=== PATIENT | female | born 2000 | race Caucasian/White ===

== ENCOUNTER 2022-02-25 14:28 | Emergency (ER) | payer BC, OTHER ==
[2022-02-25 15:09] VITALS: BP 139/97; PULSE 76; RESP 18; TEMP 98.8
[2022-02-25] MEDS ORDERED: CLINDAMYCIN 150 MG CAP PO STA (16:59)
--- NOTE | 2022-02-25 17:04 | ED ---
Skin/Abscess/FB HPI - General Chief complaint: Skin/Abscess/Foreign Body Stated complaint: Female UG Time Seen by Provider: 02/25/22 16:39 Source: patient, RN notes reviewed Mode of arrival: ambulatory Limitations: no limitations - History of Present Illness Initial comments: This is a pleasant 21-year-old female who is 6 months . Patient is currently breast-feeding her child and noticed that she had an enlarged milk ducts, more so in the left lateral breast. Patient states the area is minimally tender when his pastime. She has had no fever or chills. Patient states she started getting anxious that this could be an early infectious process. No erythema. No skin lesions or rashes. Mild anxiety, No headache, no fever or chills, no changes in vision or hearing, no sore throat or difficulty with speech, no neck pain, no chest pain or shortness of breath, no abdominal pain, no nausea or vomiting, no changes in urination or bowel movements, no numbness or tingling, no extremity pain, no skin rashes or lesions. - Related Data Home Medications Medication Instructions Recorded Confirmed Citalopram Hydrobromide [CeleXA] 10 mg PO DAILY 06/25/15 06/25/15 Clindamycin HCl 300 mg PO TID 06/25/15 06/25/15 HYDROcodone/APAP 5-325MG [[place] 5] 1 - 2 each PO Q6HR PRN 06/25/15 06/25/15 Ibuprofen [Motrin] 600 mg PO Q8HR PRN 06/25/15 06/25/15 Previous Rx's Medication Instructions Recorded clindamycin HCL [Cleocin] 150 mg PO Q8H 10 Days #90 cap 02/25/22 Allergies Allergy/AdvReac Type Severity Reaction Status Date / Time Penicillins Allergy Rash/Hives Verified 02/25/22 15:09 Review of Systems ROS Statement: Those systems with pertinent positive or pertinent negative responses have been documented in the HPI. ROS Other: All systems not noted in ROS Statement are negative. Past Medical History Past Medical History: Seizure Disorder History of Any Multi-Drug Resistant Organisms: None Reported Past Surgical History: No Surgical Hx Reported Past Psychological History: Anxiety Smoking Status: Never smoker Past Alcohol Use History: None Reported Past Drug Use History: None Reported General Exam - General Exam Comments Initial Comments: Healthy-appearing, nontoxic appearing female in no distress. Vital signs stable, patient afebrile. Limitations: no limitations General appearance: alert, in no apparent distress Head exam: Present: atraumatic, normocephalic, normal inspection Eye exam: Present: normal appearance, PERRL, EOMI. Absent: scleral icterus, conjunctival injection, periorbital swelling ENT exam: Present: normal exam, mucous membranes moist Neck exam: Present: normal inspection, full ROM. Absent: tenderness, meningismus, lymphadenopathy Respiratory exam: Present: normal lung sounds bilaterally, chest wall tenderness (Chaperoned examination reveals multiple breast lumps consistent with milk engorgement. No overlying erythema. No axillary adenopathy.). Absent: respiratory distress, wheezes, rales, rhonchi, stridor, accessory muscle use Cardiovascular Exam: Present: regular rate, normal rhythm, normal heart sounds. Absent: systolic murmur, diastolic murmur, rubs, gallop, clicks GI/Abdominal exam: Present: soft, normal bowel sounds. Absent: distended, tenderness, guarding, rebound, rigid Extremities exam: Present: normal inspection, full ROM, normal capillary refill. Absent: tenderness, pedal edema, joint swelling, calf tenderness Back exam: Present: normal inspection Neurological exam: Present: alert, oriented X3, CN II-XII intact Psychiatric exam: Present: normal affect, normal mood Skin exam: Present: warm, dry, intact, normal color. Absent: rash Course Vital Signs 02/25/22 15:06 Temperature 98.8 F Pulse Rate 76 Respiratory 18 Rate Blood Pressure 139/97 O2 Sat by Pulse 98 Oximetry Medical Decision Making - Medical Decision Making Patient's presentation most consistent with milk engorgement. 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 Patient continue to breast-feed and noticed more milk enlargement, especially to area to the left lateral breast. Does not appear to be consistent with mastoiditis as of yet. There is no erythema. No axillary adenopathy. Patient is afebrile. Certainly could be early mastitis. Going to treat the patient with clindamycin as she is ALLERGIC to penicillins. We will have her call her liberal arts and humanities chair in the morning. the patient's liberal arts and humanities chair is in [place]. Patient does have a primary care physician in [place]. She understands this treatment plan. I did offer laboratory work and ultrasound. However patient does not appear to be ill or toxic. I do not feel this would change the treatment plan. Patient concurs with this. Antibiotic and conservative therapy through shared decision-making. Patient was told to return to the ER for any signs or symptoms worsen. Told to return immediately if any other problems arise. All questions answered. Treatment plan discussed. Patient in agreement Every effort has been made to ensure accuracy of this dictation. However, due to the limitations of electronic medical records and dictation devices, errors in charting still occur. Disposition Clinical Impression: Acute mastitis of left breast, Milk engorgement of breast Disposition: HOME SELF-CARE Condition: Stable Instructions (If sedation given, give patient instructions): Mastitis (ED), and the Working Mom (ED), Breast Care for the Mother (ED) Additional Instructions: Call your regular physician and your liberal arts and humanities chair ADEM tomorrow morning for recheck. Continue with breast-feeding and pumping. Follow-up with your regular physician as directed. Return to the ER immediately if any symptoms worsen, new symptoms arise, or any other problems develop. Prescriptions: clindamycin HCL [Cleocin] 150 mg PO Q8H 10 Days #90 cap Is patient prescribed a controlled substance at d/c from ED?: No Referrals: Nonstaff,Physician [REFERRING] - 02/26/22 8:00 am Time of Disposition: 17:01
== END 2022-02-25 17:52 | disposition home or self-care (01) ==
LOC: EC 14:28
DX: N61.0 Mastitis without abscess (principal); N64.59 Other signs and symptoms in breast; F41.9 Anxiety disorder, unspecified; Z88.0 Allergy status to penicillin
CPT/HCPCS: 99283